=== PATIENT | female | born 1985 ===

== ENCOUNTER → 2018-02-14 21:58 | Outpatient (REF) | payer OTHER, SELFPAY ==
[2018-02-15 02:26] LABS: HEMOLYSIS < 15 (0-50)
[2018-02-15 02:32] LABS: Alanine Aminotransferase 21 IU/L (9-52); Albumin 4.7 g/dL (3.5-5.0); Albumin Globulin Ratio 1.6 (1.0-2.8); Alkaline Phosphatase 72 U/L (38-126); Aspartate Aminotransferase 27 IU/L (14-36); Bilirubin Total 0.3 mg/dL (0.2-1.3); Blood Urea Nitrogen 16 mg/dL (7-17); Calcium 9.7 mg/dL (8.4-10.2); Carbon Dioxide 23 mmol/L (22-32); Chloride 105 mmol/L (98-107); Estimated Glomerular Filt Rate > 60.0 mL/min (>60); Globulin 2.9 g/dL (1.7-4.1); Glucose 82 mg/dL (70-100); Potassium 4.4 mmol/L (3.4-5.1); Sodium 143 mmol/L (137-145); Total Protein 7.6 g/dL (6.3-8.2)
[2018-02-15 02:33] LABS: Free T3, Triiodothyronine Free 3.75 pg/mL (2.77-5.27); Free T4, Direct Thyroxine 1.05 ng/dL (0.78-2.19)
[2018-02-15 02:47] LABS: Thyroid Stimulating Hormone 1.37 uIU/mL (0.47-4.68)
[2018-02-15 03:09] LABS: Ferritin 20.1 ng/mL (6.27-137)
[2018-02-17 20:27] LABS: ANA Pattern Homogeneous; ANA Screen, IFA Positive (Negative)
== END ==
LOC: LAB 21:58
PROVIDERS: Visit Provider Naturopath
DX: L53.8 Other specified erythematous conditions (principal); E03.9 Hypothyroidism, unspecified; M54.5 Low back pain
CPT/HCPCS: 80053; 82728; 84439; 84443; 84481; 86038